=== PATIENT | female | born 1985 | race Caucasian/White ===

== ENCOUNTER 2016-10-18 11:31 | Emergency (ER) | payer OTHER ==
[~2016-10-18] VITALS: Ht 157.5 cm; Wt 173.5 kg
[~2016-10-18 11:31] MED LIST: AMLO5TAB4 PO; BENA20TA48 PO; CIPR500T4 PO; CLIN-73 PO; DOCU-144 PO; IBUP800T25 PO; METR500T PO; TRAM50TA2 PO
[2016-10-18 11:33] VITALS: Ht 157.5 cm; Wt 173.5 kg
[2016-10-18] MEDS ORDERED: ONDANSETRON 4 MG INJ IV STA (12:11)
--- NOTE | 2016-10-18 12:11 | ERD ---
ER Documentation Chief Complaint Date/Time DATE: 10/18/16 TIME: 12:10 Chief Complaint ap , reported stool mixed with blood HPI 31-year-old female presents to the emergency room for diffuse abdominal pain and bloody stool. Stated that her symptoms started yesterday. Had a couple of bowel movements and stated that she saw blood on her stool. Stated that sometimes a slight red and/or dark red. Stated that her bowel movement is normal and not a diarrhea like but goes to the bathroom "a lot of times in the past 24 hours." She also stated that she is nauseous but no vomiting. Denies headache, loss of consciousness, dizziness, blurry vision, changes in vision, photophobia, facial pain, ear pain, throat pain, difficulty swallowing, neck pain, shoulder pain, chest pain, cough, hemoptysis, abdominal pain, back pain, loss of appetite, vomiting, diarrhea, constipation, urinary symptoms, , the possibility of being , bladder and bowel incontinences, extremity weakness, extremity tenderness, numbness or tingling sensation, difficulty walking, recent travel, recent exposure to illness, recent antibiotic use in the last 3 months, fever, chills. Allergy: Codeine. PMH: Diabetes, hypertension, diverticulitis. Family medical history: Denies family history of colon cancer. AO LMP: 09/22/2016 Medications: Metoprolol, Klor-Con, metformin, loratadine, benazepril, amlodipine , tramadol, hydrochlorothiazide. Surgery: Denies. Primary Social History: "On disability." Denies smoking, use of alcohol, use of illegal drugs. ROS All systems reviewed and are negative except as per history of present illness. Medications Home Meds Active Scripts Tramadol HCl (Tramadol HCl) 50 Mg Tablet, 50 MG PO Q4 Y for PAIN, #15 TAB Prov:MELVIN SHULTZ MD 04/05/16 Docusate Sodium* (Colace*) 100 Mg Capsule, 100 MG PO BID, #30 CAP Prov:MELVIN SHULTZ MD 04/05/16 Metronidazole* (Flagyl*) 500 Mg Tablet, 500 MG PO BID for 7 Days, TAB Prov:MELVIN SHULTZ MD 04/05/16 Ciprofloxacin Hcl* (Ciprofloxacin Hcl*) 500 Mg Tablet, 500 MG PO BID for 10 Days , TAB Prov:MELVIN SHULTZ MD 04/05/16 Ibuprofen* (Motrin*) 800 Mg Tab, 800 MG PO Q6H Y for PAIN AND OR ELEVATED TEMP, #30 TAB Prov:YUAN DEL RIO NP 10/26/15 Clindamycin Hcl* (Clindamycin Hcl*) 300 Mg Capsule, 300 MG PO TID for 10 Days, CAP Prov:YUAN DEL RIO NP 10/26/15 Reported Medications Amlodipine Besylate* (Norvasc*) 5 Mg Tablet, 5 MG PO DAILY, TAB 05/26/14 Benazepril Hcl* (Benazepril Hcl*) 20 Mg Tablet, 20 MG PO DAILY, TAB 05/26/14 Allergies Allergies: Coded Allergies: codeine (Verified Allergy, Intermediate, RASH, 05/26/14) PMhx/Soc History of Surgery: No Anesthesia Reaction: No Hx Neurological Disorder: No Hx Respiratory Disorders: No Hx Cardiac Disorders: Yes (HTN) Hx Psychiatric Problems: No Hx Miscellaneous Medical Probl: Yes (PRE-DM) Hx Alcohol Use: No Hx Substance Use: No Hx Tobacco Use: No Smoking Status: Never smoker Physical Exam Vitals Vital Signs Date Time Temp Pulse Resp B/P Pulse Ox O2 Delivery O2 Flow Rate FiO2 10/18/16 11:33 98.1 110 24 160/90 99 Physical Exam CONSTITUTIONAL: Well-appearing; well-nourished. HEAD: Normocephalic; atraumatic. EYES: Conjunctiva clear, sclera non-icteric, EOM intact. PERRL Ears: Hearing intact. EACs clear, TMs non-bulging, non-inflamed, translucent & mobile, ossicles normal appearance, No obstructions, no erythema, no discharges Nose: No obstructions. No polyps. No external lesions. Mucosa non-inflamed. No external lesions, septum and turbinates normal. No rhinorrhea. No discharges. Frontal sinus is non-tender to palpation. Maxillary sinus is non-tender to palpation. MOUTH: Moist mucous membranes, no lesion, no obstructions, no vesicles, no thrush, patent airway Throat: Uvula in midline. Right tonsil is +1 with no erythema, no exudate. Left tonsil is +1 with no erythema, no exudate. Tolerating secretions well. Good gag reflex. Patent airway. Neck: Supple, without lesions, bruits, or adenopathy. No mass. Thyroid non- enlarged and non-tender to palpation. CHEST: Symmetrical chest. Respirations even and not labored. No retractions noted. CARDIOVASCULAR: Normal S1, S2. RRR. No murmurs, gallops. RESPIRATORY: Normal chest excursion with respiration; breath sounds clear and equal bilaterally; no wheezes, rhonchi, or rales. Breathing even and unlabored. Speaking in clear, full, and complete sentences w/ ease. ABDOMEN: Normal bowel sounds normal. Soft, round, non-distended, non-guarding, no rebound, no organomegaly, no masses, no pulsating abdominal mass. His right lower abdominal tenderness on light and deep palpation. Patient developed right lower abdominal pain after jumping (test) once. No hernia. No peritoneal signs. : No CVA tenderness. BACK: Symmetrical shoulder. Spine is midline without deformity, tenderness. No evidence of trauma or deformity. PELVIS: Stable pelvis. No evidence of trauma or deformity. MUSCULOSKELETAL: Normal gait and station. No misalignment, asymmetry, crepitation, defects, tenderness, masses, effusions, decreased range of motion, instability, atrophy or abnormal strength or tone in the head, neck, spine, ribs , pelvis or extremities. No calf tenderness. NEUROVASCULAR: Distal pulses are present. Pedal pulse are present, equal, and normal. Capillary refills are < 2 seconds. NEUROLOGIC: Alert and oriented x4. Speaks full and clear sentences. Cranial Nerves II-XII normal. Sensation to pain, touch, and proprioception normal. Grossly unremarkable. No neurologic deficits. Romberg test is negative. PSYCHOLOGICAL: The patients mood and manner are appropriate. No hallucinations , delusions. Not SI. Not HI. Has the capacity to decide for self SKIN: Normal for age and ethnicity; warm; dry; good turgor; no apparent lesions or exudates. No rashes, hives, discoloration. Intact. Result Diagram: 10/18/16 1220 Results 24 hrs Laboratory Tests Test 10/18/16 12:07 10/18/16 12:20 Stool Occult Blood POSITIVE Sodium Level 138mmol/L Potassium Level 4.1mmol/L Chloride Level 98mmol/L Carbon Dioxide Level 26mmol/L Anion Gap 18 Blood Urea Nitrogen 14mg/dl Creatinine 0.73mg/dl Glucose Level 222mg/dl Calcium Level 9.9mg/dl Total Bilirubin 0.3mg/dl Direct Bilirubin 0.00mg/dl Indirect Bilirubin 0.3mg/dl Aspartate Amino Transf (AST/SGOT) 43IU/L Alanine Aminotransferase (ALT/SGPT) 73IU/L Alkaline Phosphatase 67IU/L Total Protein 7.9g/dl Albumin 4.1g/dl Globulin 3.80g/dl Albumin/Globulin Ratio 1.07 Amylase Level 57U/L Lipase 108U/L Current Medications Medications (Trade) Dose Ordered Sig/Shannan Route PRN Reason Start Time Stop Time Status Last Admin Dose Admin Ondansetron HCl (Zofran Inj) 4 mg ONCE STAT IV 10/18/16 12:11 10/18/16 12:47 DC Ondansetron HCl (Zofran Odt) 4 mg ONCE STAT ODT 10/18/16 12:46 10/18/16 12:47 DC 10/18/16 13:04 Procedures/MDM Examination: Please see physical examination. Disease process, medical treatment was explained to the patient and family member. They verbalized understanding and agreed with the diagnostic tests, medical treatment, and follow-up care. Case and medical management was discussed with supervising emergency room physician, Dr. Migule Aguilar who agreed with my present impression as a result of my evaluation Stool for occult blood: Positive. Radiology: CT abdomen and pelvis without IV contrast. Impression: Awaiting results. Blood works: Awaiting full results. HCG urine: Awaiting results. Urinalysis: Awaiting results. Treatment: Zofran 4 mg ODT. Re-evaluation: Consultation: Differential diagnosis: Abdominal aortic aneurysm versus pancreatitis versus cholecystitis versus appendicitis versus cholecystitis versus diverticulitis Medical decision makin-year-old female presents to the emergency room for diffuse abdominal pain and bloody stool. Stated that her symptoms started yesterday. Had a couple of bowel movements and stated that she saw blood on her stool. Stated that sometimes a slight red and/or dark red. Stated that her bowel movement is normal and not a diarrhea like but goes to the bathroom " a lot of times in the past 24 hours." She also stated that she is nauseous but no vomiting. Patient's complaint, patient's history about her complaint, my physical findings, diagnostic test results, my re-evaluation are consistent with my final diagnosis of abdominal pain. Awaiting results. Case and medical management was discussed with supervising emergency room physician who agreed with my medical decision making. If CT abdomen and pelvis results as no acute findings and blood works as well as urine specimen is no acute findings patient will be discharged with a final diagnosis of abdominal pain unknown etiology. To follow-up with her own primary care physician in the next 24-48 hours. Case was endorsed to Seb Campbell who accepted and continued care. Departure Diagnosis: Primary Impression: Abdominal pain Condition: BASHIR Daniels Oct 18, 2016 12:11
[2016-10-18] MEDS ORDERED: ONDANSETRON (ODT) 4 MG TAB ODT STA (12:46)
[2016-10-18 12:50] LABS: ADD SCAN DIFF NO
[2016-10-18 12:52] LABS: BASOPHIL # 0.1 10^3/ul (0.0-0.1); BASOPHILS % 0.6 % (0.0-2.0); EOSINOPHILS # 0.2 10^3/ul (0.0-0.5); HEMATOCRIT 38.4 % (37.0-47.0); HEMOGLOBIN 13.4 g/dl (12.0-16.0); LYMPHOCYTES # 1.5 10^3/ul (0.8-2.9); LYMPHOCYTES % 17.9 % (15.0-51.0); MEAN CORPUSCULAR HEMOGLOBIN 30.3 pg (29.0-33.0); MEAN CORPUSCULAR HGB CONC 34.9 g/dl (32.0-37.0); MEAN CORPUSCULAR VOLUME 86.9 fl (82.0-101.0); MEAN PLATELET VOLUME 12.5 fl (7.4-10.4); MONOCYTE # 0.5 10^3/ul (0.3-0.9); MONOCYTES % 5.4 % (0.0-11.0); NEUTROPHIL # 6.2 10^3/ul (1.6-7.5); NEUTROPHILS % 73.4 % (39.0-77.0); PLATELET COUNT 173 10^3/UL (140-415); RED BLOOD COUNT 4.42 10^6/ul (4.20-5.40); RED CELL DISTRIBUTION WIDTH 13.3 % (11.5-14.5); WHITE BLOOD COUNT 8.4 10^3/ul (4.8-10.8)
[2016-10-18 13:05] LABS: ALBUMIN 4.1 g/dl (3.3-4.9); POTASSIUM 4.1 mmol/L (3.5-5.1)
[2016-10-18 13:06] LABS: ADD UMIC YES; URINE BILIRUBIN (Dip) NEGATIVE (NEGATIVE); URINE BLOOD (Dip) TRACE (NEGATIVE); URINE COLOR LT. YELLOW (YELLOW); URINE GLUCOSE (Dip) NEGATIVE (NEGATIVE); URINE KETONES (Dip) NEGATIVE (NEGATIVE); URINE LEUKOCYTE ESTERASE (Dip) NEGATIVE (NEGATIVE); URINE NITRITE (Dip) NEGATIVE (NEGATIVE); URINE TOTAL PROTEIN (Dip) 2+ (NEGATIVE); URINE UROBILINOGEN (Dip) 0.2 E.U./dL (0.1-1.0)
[2016-10-18 13:07] LABS: ALBUMIN/GLOBULIN RATIO 1.07; BILIRUBIN,INDIRECT 0.3 mg/dl (0-1.1); BILIRUBIN,TOTAL 0.3 mg/dl (0.2-1.3); CREATININE 0.73 mg/dl (0.44-1.00); TOTAL PROTEIN 7.9 g/dl (6.1-8.1)
[2016-10-18 13:08] LABS: CALCIUM 9.9 mg/dl (8.4-10.2)
[2016-10-18] MEDS ORDERED: ONDA4TAB8 PO (13:24)
[2016-10-18 13:32] LABS: SQUAMOUS EPITHELIAL CELL,UR FEW; URINE RBCS 0-2 /HPF (0)
--- NOTE | 2016-10-18 14:43 | RADRPT ---
PROCEDURE: CT Abdomen and Pelvis without contrast. CLINICAL INDICATION: Abdominal pain. Hematochezia. TECHNIQUE: CT scan of the abdomen and pelvis without contrast was performed on a multi-slice CT [facility] without intravenous contrast. Coronal and sagittal reformatted images were obtained from the axial source images. Images were reviewed on a high-resolution PACS workstation. One or more of the following does reduction techniques were used: Automated exposure control; adjustment of the mA an d/or kV according to patient size; use of the aorta of reconstruction technique. The total exam CTD I equals 23.84 mGy and the total exam DLP equals 1692.58 mGy-cm. COMPARISON: CT abdomen pelvis 04/05/2016. CT abdomen pelvis 04/18/2012 FINDINGS: There is focal emphysematous changes or air trapping in the base of the right upper lobe likely rela eboni to a congenital abnormality. The appearance is stable compared to 04/18/2012. The lung bases ar e otherwise clear. Heart size is normal, and there is no evidence of pericardial thickening or effus ion. The liver is enlarged. There is diffuse decreased attenuation of the hepatic parenchyma consistent with fatty infiltration. The liver, spleen, and pancreas are otherwise normal given the limitations of a noncontrast CT examination. The gallbladder is normal. The adrenal glands are normal. The kidneys without renal calculus or hydronephrosis. The aorta is of normal caliber. There are a few shoddy retroperitoneal lymph nodes which are not en larged by strict CT criteria. There is no evidence of retroperitoneal lymph node enlargement. There is no evidence of large or small bowel obstruction there are a few scattered colonic diverticu la. There is no CT evidence of diverticulitis. A normal appendix is identified. No free fluid or fluid collections are identified. No inflammatory changes are seen. The uterus is present. There is a 4.0 cm cystic structure in the right adnexa, not an unexpected fi nding in a premenopausal female No enlarged pelvic sidewall lymph nodes are seen. The bladder is de compressed and collapsed. No free fluid is identified. The inguinal regions are unremarkable. There is unilateral left L5 spondylolysis without evidence of spondylolisthesis. The bones are othe rwise intact. IMPRESSION: 1. No CT evidence of acute intra-abdominal or pelvic process. 2. Focal emphysematous change/air trapping in the base of the right upper lobe which is stable comp ared to 2011 and most consistent with a congenital anomaly. This can be further evaluated with non emergent CT chest if clinically indicated. 3. Fatty infiltration of the liver. 4. Diverticulosis without CT evidence of diverticulitis. 5. 4 cm cystic structure in the right adnexa not unexpected finding in a premenopausal female. Thi s can be further evaluated with pelvic ultrasound if clinically indicated. 6. 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 RPTAT: AA .Stevan Marrero MD, MD Date Time Electronically viewed and signed by .Stevan Marrero MD, MD on 10/18/2016 14:43 .B/
== END 2016-10-18 15:15 | disposition home or self-care (01) ==
LOC: FTE 11:31
DX: R10.84 Generalized abdominal pain (principal); I10 Essential (primary) hypertension
CPT/HCPCS: 74176; 80053; 81001; 82150; 82270; 83690; 84703; 85025; 87086; Z7610; 81003

== ENCOUNTER 2017-10-31 13:09 | Emergency (ER) | END 2017-10-31 15:32 | disposition home or self-care (01) ==

== ENCOUNTER 2017-11-04 10:33 | Emergency (ER) | END 2017-11-04 13:58 | disposition home or self-care (01) ==

== ENCOUNTER 2019-04-17 11:47 | Emergency (ER) | payer OTHER ==
[~2019-04-17] VITALS: Ht 172.7 cm; Wt 146.0 kg
[~2019-04-17 11:47] MED LIST changes: +BENA20TA4 PO; -BENA20TA48 PO; -CLIN-73 PO; +CLIN300C10 PO; +CLOT30CR24 TOP; +HYDR-3980 PO; -IBUP800T25 PO; +IBUP800T48 PO; +MUPI22OI2 TOP; +ONDA4TAB14 PO; +ONDA4TAB8 PO
[2019-04-17 12:15] VITALS: Ht 172.7 cm; Wt 146.0 kg
[2019-04-17] MEDS: NEOMYC/POLYMYX/BACIT 30 GM OINT TOP ONE ×2 (13:43→14:26)
[2019-04-17 14:26] VITALS: BP 117/88; PULSE 77; RESP 18
== END 2019-04-17 14:46 | disposition home or self-care (01) ==
LOC: FTE 11:47
DX: T65.91XA Toxic effect of unspecified substance, accidental (unintentional), initial encounter (principal); T21.42XA Corrosion of unspecified degree of abdominal wall, initial encounter; I10 Essential (primary) hypertension; X58.XXXA Exposure to other specified factors, initial encounter; Y92.9 Unspecified place or not applicable
CPT/HCPCS: Z7502; Z7610; 99283